=== PATIENT | female | born 1950 | race Caucasian/White ===

== ENCOUNTER → 2020-05-31 | Outpatient (CLI) | payer MEDICARE, OTHER ==
--- NOTE | 2020-05-31 15:13 | KCIC ---
Bilateral digital screening mammograms with 3-D tomosynthesis: Reason for examination: Routine screening. Comparison is made to previous study dated 05/25/2019. Bilateral mammograms in CC and oblique projections were obtained with 2-D imaging and 3-D tomosynthes is imaging on a Siemens Inspiration unit and reviewed on the workstation. Interpretation was made noman caban the benefit of CAD. The skin and nipples show no abnormalities. No abnormal axillary lymph nodes are seen. The breast par enchyma is heterogeneously dense. (Breast density: Category C.) There continue to be small circumscri bed nodules in the left breast which are stable and likely represent small cystic and fibrocystic les ions. There are no new dominant masses, suspicious calcifications or architectural distortion. Benign calcifications are present. Impression: No evidence of malignancy. Recommend routine screening. Your patient's mammogram demonstrates that she has dense breast tissue (breast density category C or D), which could hide abnormalities, and if she has other risk factors for breast cancer that have bee n identified, she might benefit from supplemental screening tests that may be suggested by you as her ordering physician. Dense breast tissue, in and of itself, is a relatively common condition. Therefo re, this information is not provided to cause undue concern, but rather to raise your awareness and t o promote discussion with your patient regarding the presence of other risk factors, in addition to d ense breast tissue. Your patient's mammography results will be sent to her. BI-RAD Category 2: Benign. "Our facility is accredited by the [employer] Mammography [employer]." This patient's information has been entered into a reminder system for the patient to be notified wit h the results of her examination and a target date for the next mammogram. Electronically signed by: Gauri Mejia MD (05/31/2020 3:11 PM) [id number]
== END ==
LOC: KCIC MAMMO 12:30 → EDBD 12:30
PROVIDERS: ATTEND Family Medicine
DX: Z12.31 Encounter for screening mammogram for malignant neoplasm of breast (principal)
CPT/HCPCS: 77063; 77067

== ENCOUNTER → 2021-04-18 | Outpatient (CLI) | payer MEDICARE, OTHER ==
--- NOTE | 2021-04-18 14:26 | KCIC ---
Exam Date: 04/18/2021 9:00 AM MRI RIGHT LOWER EXTREMITY JOINT WITHOUT Indication: Reason: RIGHT KNEE PAIN / Spl. Instructions: / History: Medial rt knee pain since an unc omfortable long car ride in January.. TECHNIQUE: Routine multiplanar MR imaging of the knee was performed without contrast. FINDINGS: The body and posterior horn of the medial meniscus demonstrate abnormal signal and morphology consist ent with complex tearing, with extrusion of the body. The body and anterior horn of the lateral meniscus demonstrate abnormal signal and morphology consist ent with complex tearing, with extrusion of the body. There is diffuse increased signal in an otherwise intact anterior cruciate ligament consistent with e ither degeneration. The posterior cruciate ligament, medial collateral ligament, and lateral collateral ligament complex are intact. Patellofemoral extensor mechanism and popliteus tendon are within normal limits. There is extensive multifocal full-thickness chondral loss in the lateral compartment. Partial thick ness chondral defects are seen in the medial compartment. Full and partial thickness chondral defect s are seen in the patellofemoral compartment. Bone marrow demonstrates benign signal on all sequences. No acute fracture is seen. Small tricompar tment osteophytes are noted. There is a moderate joint effusion. There is a small popliteal cyst. IMPRESSION: Complex tearing involving the medial and lateral menisci as described. Mucoid degeneration of an otherwise intact ACL. Extensive full-thickness chondral loss in the lateral compartment. Small focal full-thickness chondr al defects noted in the patellofemoral compartment. Moderate joint effusion and small popliteal cyst noted. Electronically signed by: Woody Larose MD (04/18/2021 2:24 PM) [id number]
== END ==
LOC: KCIC MRI 08:36
PROVIDERS: ATTEND Nurse Practitioner
DX: S83.231A Complex tear of medial meniscus, current injury, right knee, initial encounter (principal); S83.271A Complex tear of lateral meniscus, current injury, right knee, initial encounter; M25.461 Effusion, right knee; M25.761 Osteophyte, right knee; M71.21 Synovial cyst of popliteal space [Baker], right knee
CPT/HCPCS: 73721

== ENCOUNTER → 2021-06-11 | Outpatient (CLI) | payer MEDICARE, OTHER ==
--- NOTE | 2021-06-11 12:37 | KCIC ---
EXAM: Bilateral digital screening mammogram with tomosynthesis. HISTORY: 71-year-old female presents for screening mammography. TECHNIQUE: Full-field digital craniocaudal and mediolateral oblique 2D and 3D tomosynthesis images of both breasts are obtained for evaluation. Computer aided detection was applied. COMPARISON: 05/31/2020 BREAST PARENCHYMAL DENSITY: Level C - Heterogeneously dense. FINDINGS: There is no new suspicious mass, microcalcification or region of architectural distort . Th ere are stable areas of benign asymmetry and nodularity within both breasts, the most conspicuous of which are seen within the 3:00 position of the left breast at mid depth and 7:00 position of the left breast at anterior to mid depth. There are benign calcifications read IMPRESS : BI-RADS Category 2: Benign finding(s). RECOMMENDAT : Annual mammography is recommended. If your mammogram demonstrates that you have dense breast tissue, which could hide abnormalities, and if you have other risk factors for breast cancer that have been identified, you might benefit from s upplemental screening tests that may be suggested by your ordering physician. Dense breast tissue, i n and of itself, is a relatively common condition. This information is not provided to cause undue c oncern, but rather to raise your awareness and to promote discussion with your physician regarding th e presence of other risk factors, in addition to dense breast tissue. A report of your mammography re sults will be sent to you and your physician. You should contact your physician if you have any ques tions or concerns regarding this report. Mammography is a sensitive method for finding small breast cancers, but it does not detect them all a nd is not a substitute for careful clinical examination. A negative mammogram does not negate a clin ically suspicious finding and should not result in delay in biopsying a clinically suspicious abnorma lity. PQRS compliance statement - Patient information was entered into a reminder system with a target due date for the next mammogram. "Our facility is accredited by the [employer] Mammography [employer]." Electronically signed by: Anne Harris MD (06/11/2021 12:34 PM) [id number]
== END ==
LOC: KCIC MAMMO 10:07
PROVIDERS: ATTEND Family Medicine
DX: Z12.31 Encounter for screening mammogram for malignant neoplasm of breast (principal)
CPT/HCPCS: 77063; 77067